=== PATIENT | male | born 1975 | race Caucasian/White ===

== ENCOUNTER 2019-06-12 18:07 | Emergency (ER) | payer BC ==
[2019-06-12] MEDS ORDERED: Sodium Chloride 0.9% 1,000 ML IV ONE (19:05)
[2019-06-12] MEDS ORDERED: Meclizine 25 MG Tab PO ONE (19:17)
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
[2019-06-12 19:50] LABS: BLOOD UREA NITROGEN,BUN 12 mg/dL (7.0-18.0); CARBON DIOXIDE,CO2 24.7 mmol/L (21.0-32.0); CHLORIDE,CL 105 mmol/L (98-107); GLUCOSE RANDOM 96 mg/dL (74-106); POTASSIUM,K 3.7 mmol/L (3.5-5.1); SODIUM,NA 138 mmol/L (136-148)
--- NOTE | 2019-06-12 20:07 | CT ---
INDICATION: Dizziness TECHNIQUE: CT head without contrast. COMPARISON: None. FINDINGS: CSF spaces: Within normal limits for age. Brain parenchyma and extra-axial spaces: The uribe-white differentiation is normal. No sign of mass, hemorrhage, or midline shift. No extra-axial fluid collection. Skull base and calvarium: The visualized paranasal sinuses and mastoid air cells demonstrate no acute or significant findings. The visualized orbits are grossly unremarkable. No skull fractures. IMPRESSION: Unremarkable noncontrast head CT. Please note that all CT scans at this facility use dose modulation, iterative reconstruction, and/or weight-based dosing when appropriate to reduce radiation dose to as low as reasonably achievable. Dictated by Teddy Beavers MD @ Jun 12 2019 8:02PM Signed by Dr. Teddy Beavers @ Jun 12 2019 8:05PM
--- NOTE | 2019-06-12 20:18 | CR ---
Indication: Dizziness, visual changes, shortness of breath, fatigue Technique: Chest 1 view Comparison: None Findings/Impression: Normal cardiomediastinal silhouette. Normal pulmonary vasculature. No focal infiltrate, effusion, or pneumothorax. Osseous structures intact. Dictated by Marsha Choe MD @ Jun 12 2019 8:17PM Signed by Dr. Marsha Choe @ Jun 12 2019 8:17PM
[2019-06-12 21:13] VITALS: BP 135/77; PULSE 81
== END 2019-06-12 21:11 | disposition home or self-care (01) ==
LOC: MW.ED 18:07
DX: R42 Dizziness and giddiness (principal); F17.210 Nicotine dependence, cigarettes, uncomplicated; Z88.8 Allergy status to other drugs, medicaments and biological substances; Z91.018 Allergy to other foods
CPT/HCPCS: 70450; 71045; 80053; 84484; 85025; 93005; 96360; 99284; A9270; J7040